=== PATIENT | male | born 1970 | race Caucasian/White ===

== ENCOUNTER 2017-08-02 18:14 | Emergency (ER) | payer MEDICAID ==
[~2017-08-02] VITALS: Ht 5871 cm; Wt 83.9 kg
[~2017-08-02 18:14] MED LIST: HYDR-3965 PO; HYDR-569 PO
[2017-08-02 18:18] VITALS: BP 129/71
[2017-08-02] MEDS ORDERED: doxycycline hyclate 100mg tablet.DR PO ONE (18:35)
[2017-08-02] MEDS ORDERED: DOXY100C43 PO (18:59)
[2017-08-02] MEDS ORDERED: ibuprofen tablet 400 MG TABLET PO ONE (19:10)
== END 2017-08-02 19:37 | disposition home or self-care (01) ==
LOC: ER 18:15
DX: L03.031 Cellulitis of right toe (principal); F17.200 Nicotine dependence, unspecified, uncomplicated; F12.90 Cannabis use, unspecified, uncomplicated; F15.90 Other stimulant use, unspecified, uncomplicated; Z60.2 Problems related to living alone; Z56.0 Unemployment, unspecified; Z98.890 Other specified postprocedural states
CPT/HCPCS: 99283

== ENCOUNTER 2017-12-22 21:51 | Emergency (ER) | payer MEDICAID ==
[~2017-12-22] VITALS: Ht 180.3 cm; Wt 75.0 kg
[2017-12-22] MEDS ORDERED: ondansetron/PF 4mg/2ml inj IV ONE (22:10)
[2017-12-22] MEDS ORDERED: morphine 4 MG/ML inj SYRINge IV ONE (22:10)
[2017-12-22 22:23] LABS: BASOPHILS % (AUTO) 0.3 % (0-1); EOSINOPHILS # (AUTO) 0.1 X10'3 (0-0.9); EOSINOPHILS % (AUTO) 1.3 % (0-6); HEMATOCRIT 39.9 % (42.0-52.0); HEMOGLOBIN 13.1 g/dl (14.0-17.9); LYMPHOCYTES % (AUTO) 9.5 % (21-51); MEAN CORPUSCULAR HEMOGLOBIN 29.3 PG (27.0-31.0); MEAN CORPUSCULAR HGB CONC 32.7 % (33.0-36.5); MEAN CORPUSCULAR VOLUME 89.6 FL (78-98); MEAN PLATELET VOLUME 9.8 FL (7.4-10.4); MONOCYTES # (AUTO) 0.7 X10'3 (0-0.9); MONOCYTES % (AUTO) 6.1 % (2-12); NEUTROPHILS # (AUTO) 8.8 X10'3 (1.8-7.7); NEUTROPHILS % (AUTO) 82.8 % (42-75); PLATELET COUNT 202 X10'3 (140-440); RED BLOOD COUNT 4.46 X10'6 (4.70-6.10); RED CELL DISTRIBUTION WIDTH 14.1 % (11.5-14.5); WHITE BLOOD COUNT 10.6 X10'3 (4.5-11.0)
[2017-12-22 22:32] LABS: PARTIAL THROMBOPLASTIN TIME 25 SECONDS (22-32); PROTHROMBIN TIME 10.7 SECONDS (9.0-12.0)
[2017-12-22 22:35] LABS: ALANINE AMINOTRANSFERASE 36 U/L (12-78); ALBUMIN 3.9 G/DL (3.4-5.0); ALBUMIN/GLOBULIN RATIO 1.2 (1.1-1.5); ALKALINE PHOSPHATASE 91 IU/L (46-116); ANION GAP 9 (8-16); ASPARTATE AMINO TRANSFERASE 29 U/L (10-37); BILIRUBIN,TOTAL 0.6 MG/DL (0.1-1.0); BLOOD UREA NITROGEN 18 MG/DL (7-18); BUN/CREATININE RATIO 15.3 (5.4-32.0); CALCIUM 9.8 MG/DL (8.5-10.1); CHLORIDE 106 MMOL/L (99-107); CREATININE 1.18 MG/DL (0.60-1.10); GLUCOSE 104 MG/DL (70-104); SODIUM 142 MMOL/L (135-145); TOTAL CARBON DIOXIDE 26.6 MMOL/L (24-32); TOTAL PROTEIN 7.1 G/DL (6.4-8.2); eGFR 66 ML/MIN
[2017-12-22 22:38] LABS: CREATINE KINASE 323 U/L (39-308); ETHANOL < 0.010 GM/DL (0.0-0.010); LIPASE 217 U/L (73-393); TROPONIN I < 0.04 NG/ML (0.0-0.05)
[2017-12-22] MEDS ORDERED: NO HOME MEDS (23:11)
[2017-12-23 00:56] VITALS: BP 125/75
[2017-12-23] MEDS ORDERED: ondansetron/PF 4mg/2ml inj IV ONE (01:10)
[2017-12-23] MEDS ORDERED: morphine 4 MG/ML inj SYRINge IV ONE (01:10)
[2018-01-01] MEDS ORDERED: IBUP-1984 PO (11:51)
[2018-01-01] MEDS ORDERED: ACET-2119 PO (11:51)
== END 2017-12-31 01:23 | disposition short-term general hospital (02) ==
LOC: ER 21:52
DX: S02.19XA Other fracture of base of skull, initial encounter for closed fracture (principal); S43.401A Unspecified sprain of right shoulder joint, initial encounter; S90.512A Abrasion, left ankle, initial encounter; S00.411A Abrasion of right ear, initial encounter; H74.8X1 Other specified disorders of right middle ear and mastoid; G93.89 Other specified disorders of brain; I60.9 Nontraumatic subarachnoid hemorrhage, unspecified; F12.90 Cannabis use, unspecified, uncomplicated; F15.90 Other stimulant use, unspecified, uncomplicated; Z60.2 Problems related to living alone; Z59.0 Homelessness; Z56.0 Unemployment, unspecified; Z79.899 Other long term (current) drug therapy; V29.9XXA Motorcycle rider (driver) (passenger) injured in unspecified traffic accident, initial encounter; Y93.89 Activity, other specified; Y92.89 Other specified places as the place of occurrence of the external cause; Y99.8 Other external cause status
CPT/HCPCS: 36415; 70450; 70486; 71045; 72125; 73030; 73130; 80053; 80320; 82550; 83690; 84484; 85025; 85610; 85730; 86870; 86885; 86900; 86901; 93005; 96374; 96375; 96376; 99285; J2270; J2405; L0172

== ENCOUNTER 2018-01-01 10:07 | Emergency (ER) | payer MEDICAID ==
[~2018-01-01] VITALS: Ht 177.8 cm; Wt 75.0 kg
[~2018-01-01 10:07] MED LIST changes: -HYDR-3965 PO; -HYDR-569 PO; +NO HOME MEDS
[2018-01-01] MEDS ORDERED: ketorolac trometh inj. 60 MG/2 ML VIAL IM ONE (11:25)
[2018-01-01] MEDS ORDERED: IBUP-1984 PO (11:51)
[2018-01-01] MEDS ORDERED: ACET-2119 PO (11:51)
[2018-01-01 12:06] VITALS: BP 121/89
== END 2018-01-01 12:08 | disposition home or self-care (01) ==
LOC: ER 10:08
DX: M25.511 Pain in right shoulder (principal); F12.90 Cannabis use, unspecified, uncomplicated; F15.90 Other stimulant use, unspecified, uncomplicated; Z86.19 Personal history of other infectious and parasitic diseases; Z86.14 Personal history of Methicillin resistant Staphylococcus aureus infection; Z60.2 Problems related to living alone; Z56.0 Unemployment, unspecified; Z98.890 Other specified postprocedural states; Z90.89 Acquired absence of other organs; Z79.899 Other long term (current) drug therapy
CPT/HCPCS: 96372; 99283; J1885

== ENCOUNTER 2018-01-15 09:45 | Emergency (ER) | payer MEDICAID ==
[~2018-01-15] VITALS: Ht 177.8 cm; Wt 80.0 kg
[~2018-01-15 09:45] MED LIST changes: +ACET-2119 PO; +IBUP-1984 PO
[2018-01-15] MEDS ORDERED: IBUP-1984 PO (10:08)
[2018-01-15 10:19] VITALS: BP 145/89
== END 2018-01-15 10:20 | disposition home or self-care (01) ==
LOC: ER 09:46
DX: M25.511 Pain in right shoulder (principal); M54.2 Cervicalgia; R25.2 Cramp and spasm; F12.90 Cannabis use, unspecified, uncomplicated; F15.90 Other stimulant use, unspecified, uncomplicated; Z86.14 Personal history of Methicillin resistant Staphylococcus aureus infection; Z90.89 Acquired absence of other organs; Z98.890 Other specified postprocedural states; Z79.899 Other long term (current) drug therapy; Z60.2 Problems related to living alone; Z56.0 Unemployment, unspecified
CPT/HCPCS: 99282

== ENCOUNTER 2022-01-09 04:17 | Emergency (ER) | payer MEDICAID ==
[~2022-01-09] VITALS: Ht 180.3 cm; Wt 65.9 kg
[~2022-01-09 04:17] MED LIST changes: -IBUP-1984 PO
[2022-01-09] MEDS ORDERED: acetaminophen 325mg tablet PO ONE (04:35)
[2022-01-09] MEDS ORDERED: ibuprofen tablet 400 MG TABLET PO ONE (04:35)
[2022-01-09] MEDS ORDERED: CEPH250T PO (05:07)
[2022-01-09] MEDS ORDERED: bacitracin 15gm ointment TP ONE (05:10)
[2022-01-09] MEDS ORDERED: cephalexin 250mg capsule PO ONE (05:10)
[2022-01-09 05:27] VITALS: BP 113/86
== END 2022-01-09 05:28 | disposition home or self-care (01) ==
LOC: ER 04:18
DX: L03.113 Cellulitis of right upper limb (principal); F12.90 Cannabis use, unspecified, uncomplicated; F15.20 Other stimulant dependence, uncomplicated; Z59.00 Homelessness unspecified
CPT/HCPCS: 73130; 99284

== ENCOUNTER 2023-01-02 11:18 | Emergency (ER) | payer MEDICAID ==
[~2023-01-02] VITALS: Ht 177.8 cm; Wt 68.2 kg
[2023-01-02 11:23] VITALS: BP 123/74; PULSE 100; RESP 18; TEMP 98.8; O2SAT 99
[2023-01-02] MEDS ORDERED: HYDROcodone/acetaminophen 10/325mg tab PO STA (11:26)
--- NOTE | 2023-01-02 11:46 | NUR ---
ATTEMPT TO IRRIGATE PATIENTS WOUNDS, REFUSING TILL HE "GETS PAIN MEDS". RONN MADE AWARE.
[2023-01-02] MEDS ORDERED: HYDROcodone/acetaminophen 10/325mg tab PO ONE (11:50)
[2023-01-02] MEDS ORDERED: amox tr/potassium clavulanate 875/125mg TAB PO ONE (11:50)
[2023-01-02] MEDS ORDERED: LIDOcaine 1% 30ml preserv. free vial IJ ONE (11:50)
[2023-01-02] MEDS ORDERED: bacitracin 15gm ointment TP ONE (11:50)
[2023-01-02] MEDS ORDERED: TETanus/Pertussis (Acell)/Diphther VAC/PF (Tdap-Adult) 0.5ml syringe IMVAC ONE (11:50)
[2023-01-02] MEDS ORDERED: AMOX-117 PO (11:54)
[2023-01-02] MEDS ORDERED: IBUP-1986 PO (11:55)
== END 2023-01-02 12:00 | disposition left against medical advice (07) ==
LOC: ER 11:18
DX: S81.812A Laceration without foreign body, left lower leg, initial encounter (principal); S81.811A Laceration without foreign body, right lower leg, initial encounter; F12.90 Cannabis use, unspecified, uncomplicated; F15.90 Other stimulant use, unspecified, uncomplicated; Z86.14 Personal history of Methicillin resistant Staphylococcus aureus infection; Z86.19 Personal history of other infectious and parasitic diseases; Z56.0 Unemployment, unspecified; Z60.2 Problems related to living alone; Z59.00 Homelessness unspecified; Z72.89 Other problems related to lifestyle; Z79.899 Other long term (current) drug therapy; W54.0XXA Bitten by dog, initial encounter; Y93.89 Activity, other specified; Y92.89 Other specified places as the place of occurrence of the external cause; Y99.8 Other external cause status
CPT/HCPCS: 12002; 73590; 99283; A6446; A6449